=== PATIENT | female | born 1995 | race Caucasian/White ===

== ENCOUNTER 2017-06-05 18:32 | Emergency (ER) | payer OTHER ==
[~2017-06-05] VITALS: Ht 172.7 cm; Wt 50.9 kg
[~2017-06-05 18:32] MED LIST: FISH OIL500 MG PO; FLONASE NASAL S16 GM NS; MEDROL2 M1; MONOKET10 MG PO; NORCO 325 MG-51 TAB PO; PRILOSEC 20MG20 MG PO; RT ADVAIR 128 DISKUS IH
[2017-06-05 18:33] VITALS: TEMP 97.7
[2017-06-05] MEDS ORDERED: MULTI VITAMINS1 TAB PO (19:39)
[2017-06-05] MEDS ORDERED: SINGULAIR 110 MG/TAB PO (19:39)
[2017-06-05] MEDS ORDERED: NAPROSYN500 MG PO (20:19)
[2017-06-05 20:51] VITALS: BP 122/84; PULSE 79
== END 2017-06-05 20:31 | disposition home or self-care (01) ==
LOC: COL.ER 18:32
DX: M25.511 Pain in right shoulder (principal); J45.909 Unspecified asthma, uncomplicated; Z88.8 Allergy status to other drugs, medicaments and biological substances; Z79.51 Long term (current) use of inhaled steroids; Z79.52 Long term (current) use of systemic steroids

== ENCOUNTER → 2018-09-09 | Outpatient (CLI) | payer OTHER ==
[~2018-09-09] MED LIST changes: +MULTI VITAMINS1 TAB PO; +NAPROSYN500 MG PO; +SINGULAIR 110 MG/TAB PO
== END ==
LOC: COL.RAD 12:52
DX: G43.109 Migraine with aura, not intractable, without status migrainosus (principal); M26.609 Unspecified temporomandibular joint disorder, unspecified side